=== PATIENT | male | born 1980 | race Caucasian/White ===

== ENCOUNTER 2016-10-23 18:09 | Emergency (ER) | payer SELFPAY ==
[2016-10-23 18:17] VITALS: RESP 16; TEMP 98.2
[2016-10-23] MEDS ORDERED: NS 1,000 ML IV ONE ×2 (19:38→19:39)
[2016-10-23] MEDS ORDERED: PROMETHAZINE HCL 25 MG/ML INJ IVP ONE (20:11)
--- NOTE | 2016-10-23 20:14 | EDPHY ---
H & P Stated Complaint: sent from [facility]/heroin withdrawal gi symptoms Time Seen by Provider: 10/23/16 18:39 HPI/ROS: CHIEF COMPLAINT: nausea, vomiting, diarrhea HISTORY OF PRESENT ILLNESS: 36-year-old male presents to the emergency department complaining of nausea, vomiting and diarrhea. Patient states he is withdrawing from heroin. He has been smoking heroin for 1.5 years, last use was 5 days ago. [facility] and [facility] recommended he come here. Patient takes Lexapro and clonazepam daily, he also took Suboxone that he bought off the street last week. The [facility] has a policy that they will not see anybody that has taken Suboxone in the last 30 days. Patient denies chest pain or shortness of breath , no seizures. He states he is taking his clonazepam as prescribed and has this at home. REVIEW OF SYSTEMS: A comprehensive 10 point review of systems is otherwise negative aside from elements mentioned in the history of present illness. Source: Patient Exam Limitations: No limitations - Personal History Current Tetanus/Diphtheria Vaccine: Yes - Medical/Surgical History Hx Asthma: No Hx Chronic Respiratory Disease: No Hx Diabetes: No Hx Cardiac Disease: No Hx Renal Disease: No Hx Cirrhosis: No Hx Alcoholism: No Hx HIV/AIDS: No Hx Splenectomy or Spleen Trauma: No Other PMH: heroin abuse - Social History Smoking Status: Current every day smoker - Physical Exam Exam: Physical Exam Gen: Alert and Oriented, NAD HEENT: PERRL, moist mucous membranes NECK: no meningismus CV: regular rate and regular rhythm PULM: CTAB, no wheezes ABDOMEN: soft, non tender to palpation, BS present BACK: No CVA tenderness NEURO: Neurologically grossly intact EXTREMITIES: normal appearing SKIN: no rash or break in skin on exposed skin PSYCH: answers questions appropriately, denies suicidal ideation, homicidal ideation, auditory and visual hallucinations. Constitutional: Initial Vital Signs Temperature (C) 36.8 C 10/23/16 18:15 Heart Rate 87 10/23/16 18:15 Respiratory Rate 16 10/23/16 18:15 Blood Pressure 147/84 H 10/23/16 18:15 O2 Sat (%) 97 10/23/16 18:15 O2 Delivery Mode Room Air Allergies/Adverse Reactions: azithromycin Allergy (Verified 10/23/16 18:14) Home Medications: Medication Instructions Recorded CLONAZEPAM 10/23/16 CeleXA 20 MG 10/23/16 clonIDINE [Catapres (*)] 0.1 mg PO Q6HRS PRN #8 tab 10/23/16 traZODone 10/23/16 Medical Decision Making ED Course/Re-evaluation: 36-year-old male presents to the emergency department requesting detox from heroin. Patient [facility] to go [facility] though they would not accept him due to recent Suboxone use. Last use of heroin was 5 days ago. Patient reports nausea, vomiting and abdominal pain. Patient is here with his friends. He is connected with [facility] and is prescribed Celexa and clonazepam. Patient states he takes this as prescribed. He is nontoxic appearing, normal vital signs, afebrile, is not vomiting in the emergency department. Patient was given 1 L of normal saline, 12.5 mg of Phenergan on arrival. He is alert, active an appropriate. Patient will be discharged with a small prescription for clonidine. Patient reports feeling better after the L of saline and Phenergan. He was given a prescription for #10 0.1 mg tablets. Patient is appreciative of this, he will stay at his father's [facility] and will follow up at [facility] tomorrow. Differential Diagnosis: Diagnosis considered but not limited to opioid withdrawal, gastroenteritis, nausea and vomiting - Data Points Medications Given: Discontinued Medications Sodium Chloride (Ns) 1,000 mls @ 0 mls/hr IV ONCE ONE PRN Reason: Wide Open Stop: 10/23/16 19:39 Last Admin: 10/23/16 19:38 Dose: 1,000 mls Sodium Chloride (Ns) 1,000 mls @ 0 mls/hr IV ONCE ONE PRN Reason: Wide Open Stop: 10/23/16 19:40 Last Admin: 10/23/16 19:50 Dose: 1,000 mls Promethazine HCl (Phenergan Injection) 12.5 mg IVP EDNOW ONE Stop: 10/23/16 20:12 Last Admin: 10/23/16 20:21 Dose: 12.5 mg Departure - Departure Disposition: Home, Routine, Self-Care Clinical Impression: Heroin withdrawal Nausea & vomiting Qualifiers: Qualifier Code: (R11.2) Nausea with vomiting, unspecified Condition: Good Instructions: Opioid Withdrawal (ED) Additional Instructions: Follow-up with [facility] tomorrow. Take 0.1mg of clonidine every 6 hours as needed. Continue taking your clonazepam as prescribed, do not take any more of this than is prescribed. Return to the emergency department for any questions or concerns. Referrals: NONE *PRIMARY CARE P,. [Primary Care Provider] - As per Instructions Prescriptions: clonIDINE [Catapres (*)] 0.1 mg PO Q6HRS PRN #8 tab PRN Reason: Nausea/Vomiting, Can'T Take Po
[2016-10-23 20:58] VITALS: BP 121/84; PULSE 90; O2SAT 95
== END 2016-10-23 20:56 | disposition home or self-care (01) ==
LOC: EEVIPCON 18:09
DX: R11.2 Nausea with vomiting, unspecified (principal); F11.23 Opioid dependence with withdrawal; F17.200 Nicotine dependence, unspecified, uncomplicated
CPT/HCPCS: 96374; J2550